=== PATIENT | female | born 1960 | race Caucasian/White ===

== ENCOUNTER 2016-08-25 12:11 | Emergency (ER) | payer MEDICARE, SELFPAY | END 2016-08-25 20:36 | disposition home or self-care (01) | LOC: ER1 12:11 | DX: J44.0 Chronic obstructive pulmonary disease with (acute) lower respiratory infection (principal); J20.9 Acute bronchitis, unspecified; J45.909 Unspecified asthma, uncomplicated; E11.9 Type 2 diabetes mellitus without complications; I25.10 Atherosclerotic heart disease of native coronary artery without angina pectoris; Z88.0 Allergy status to penicillin; Z88.2 Allergy status to sulfonamides; Z88.8 Allergy status to other drugs, medicaments and biological substances; Z79.01 Long term (current) use of anticoagulants; Z79.84 Long term (current) use of oral hypoglycemic drugs; Z79.899 Other long term (current) drug therapy | CPT/HCPCS: 94640; 94664; 96372; 99283; J0696; J1100; J2930 ==

== ENCOUNTER → 2016-08-29 | Outpatient (CLI) | payer MEDICARE, SELFPAY | LOC: RAD 11:26 | DX: J45.909 Unspecified asthma, uncomplicated (principal); R05 Cough; R91.8 Other nonspecific abnormal finding of lung field | CPT/HCPCS: 71020 ==

== ENCOUNTER → 2016-09-12 | Outpatient (CLI) | payer MEDICARE | LOC: HEART 5 14:26 | DX: J44.9 Chronic obstructive pulmonary disease, unspecified (principal) | CPT/HCPCS: 94010 ==

== ENCOUNTER → 2016-09-12 | Outpatient (CLI) | payer MEDICARE | LOC: LAB 16:16 | DX: J45.40 Moderate persistent asthma, uncomplicated (principal); E66.9 Obesity, unspecified | CPT/HCPCS: 36415; 82785 ==

== ENCOUNTER → 2016-10-07 | Outpatient (CLI) | payer MEDICARE, SELFPAY ==
[2016-10-07 15:02] LABS: HEMOGLOBIN 13.1 gm/dl (12.3-15.3); RED BLOOD COUNT 4.2 M/UL (4.00-5.10); WHITE BLOOD COUNT 10.4 K/UL (4.5-11.0)
[2016-10-07 15:24] LABS: BUN/CREATININE RATIO 21 (0-10)
== END ==
LOC: LAB 14:02
PROVIDERS: Internal Medicine
DX: E11.9 Type 2 diabetes mellitus without complications (principal); M25.511 Pain in right shoulder; M25.512 Pain in left shoulder
CPT/HCPCS: 36415; 73030; 80048; 80061; 80076; 83036; 84443; 85025

== ENCOUNTER → 2016-11-07 | Outpatient (CLI) | payer MEDICARE, SELFPAY | LOC: SLEEP 12:34 | DX: G47.33 Obstructive sleep apnea (adult) (pediatric) (principal) | CPT/HCPCS: 95810 ==

== ENCOUNTER → 2016-11-15 | Outpatient (CLI) | payer MEDICARE, SELFPAY | LOC: US 15:30 | DX: M79.605 Pain in left leg (principal); M79.89 Other specified soft tissue disorders | CPT/HCPCS: 93971 ==

== ENCOUNTER → 2020-06-24 | Outpatient (CLI) | payer MEDICARE ==
[~2020-06-24] MED LIST: AIMOVIG AU140 MG/1 M SQ; AIMOVIG AU70 MG/1 M1 SQ; AZITHROMYCIN250 MG PO; BREO ELLIPTA 21 EACH INH; BUTALB-ACETAMI1 EAC1 PO; CALCIPOTRIENE120 G1 TP; CARBIDOPA-LEVO1 EA14 PO; CARISOPRODOL350 MG PO; ELAVIL 50 MG TA50 MG PO; ELIQUIS5 MG PO; FLUOXETINE HCL60 MG PO; IPRATROPIU0.2 MG/1 M INH; KLONOPIN1 MG PO; LASIX20 MG PO; LEVOCETIRIZINE D5 MG PO; LYRICA25 MG PO; METOPROLOL SUCC50 MG PO; MIRAPEX ER1.5 MG PO; MOBIC7.5 MG PO; NITROSTAT 0.40.4 MG SL; NORCO 7.5-3251 EACH PO; NORVASC 5 MG TAB5 MG PO; PHENERGAN 25 MG25 M1 PO; PRAMIPEXOLE DI1.5 MG PO; PREDNISONE10 MG PO; RABEPRAZOLE SOD20 MG PO; ROBITUSSIN AC480 ML PO; SINGULAIR10 MG PO; SPIRIVA RESPIMAT4 GM INH; SYNTHROID75 MCG PO; VENTOLIN HFA 66.7 GM INH; VITAMIN D250000 UNIT PO; VOLTAREN100 GM TP; XYLOCAINE 5% OI35 GM TOP
== END ==
LOC: SLEEP 10:22
DX: G47.33 Obstructive sleep apnea (adult) (pediatric) (principal); J45.40 Moderate persistent asthma, uncomplicated; E66.2 Morbid (severe) obesity with alveolar hypoventilation
CPT/HCPCS: 95810

== ENCOUNTER → 2020-09-13 | Outpatient (CLI) | payer MEDICARE, SELFPAY | LOC: EMI 08:53 | DX: M48.061 Spinal stenosis, lumbar region without neurogenic claudication (principal); M47.817 Spondylosis without myelopathy or radiculopathy, lumbosacral region | CPT/HCPCS: 72148 ==

== ENCOUNTER → 2021-04-27 | Day surgery (SDC) | payer MEDICARE ==
[~2021-04-27] MED LIST changes: +BENZONATATE200 MG PO; +ELIQUIS2.5 MG PO; +FAMOTIDINE20 MG PO; +FASENRA PE30 MG/1 ML SQ; +KLOR-CON 1010 MEQ PO; +MECLIZINE HCL25 MG PO; +MUCINEX600 MG PO; +NYSTATIN1000000 UN MC; +PROCTOCREAM-HC30 G1 TP; +ROBITUSSIN COU118 ML PO; +TRELEGY ELLIPT1 EAC1 INH; +VITAMIN B-121000 MC3 IM; +VITAMIN D21250 MCG PO; +VOLTAREN EC 7575 MG PO
== END | disposition home or self-care (01) ==
LOC: OR 06:12
DX: Z12.11 Encounter for screening for malignant neoplasm of colon (principal); K31.9 Disease of stomach and duodenum, unspecified; K29.50 Unspecified chronic gastritis without bleeding; K29.80 Duodenitis without bleeding; K44.9 Diaphragmatic hernia without obstruction or gangrene; K27.9 Peptic ulcer, site unspecified, unspecified as acute or chronic, without hemorrhage or perforation; K21.9 Gastro-esophageal reflux disease without esophagitis; J96.11 Chronic respiratory failure with hypoxia; E11.21 Type 2 diabetes mellitus with diabetic nephropathy; I10 Essential (primary) hypertension; J44.9 Chronic obstructive pulmonary disease, unspecified; I48.0 Paroxysmal atrial fibrillation; E03.9 Hypothyroidism, unspecified; F41.9 Anxiety disorder, unspecified; F32.A Depression, unspecified; D68.9 Coagulation defect, unspecified; G43.709 Chronic migraine without aura, not intractable, without status migrainosus; M51.36 Other intervertebral disc degeneration, lumbar region; J30.9 Allergic rhinitis, unspecified; M10.9 Gout, unspecified; E78.5 Hyperlipidemia, unspecified; M54.16 Radiculopathy, lumbar region; G47.33 Obstructive sleep apnea (adult) (pediatric); M19.90 Unspecified osteoarthritis, unspecified site; E66.9 Obesity, unspecified; Z87.440 Personal history of urinary (tract) infections; Z87.898 Personal history of other specified conditions; E53.8 Deficiency of other specified B group vitamins; E55.9 Vitamin D deficiency, unspecified; Z86.010 Personal history of colon polyps; Z79.899 Other long term (current) drug therapy; Z79.51 Long term (current) use of inhaled steroids; Z79.01 Long term (current) use of anticoagulants; Z88.1 Allergy status to other antibiotic agents; Z88.5 Allergy status to narcotic agent
CPT/HCPCS: 43239; G0121; J2704; J7030

== ENCOUNTER → 2021-09-24 | Outpatient (CLI) | payer MEDICARE ==
[2021-09-24 12:37] LABS: BORDETELLA PARAPERTUSSIS Not Detected (Not Detectd); BORDETELLA PERTUSSIS Not Detected (Not Detectd); CHLAMYDIA PNEUMONIAE Not Detected (Not Detectd); CORONAVIRUS HKU1 Not Detected (Not Detectd); CORONAVIRUS NL63 Not Detected (Not Detectd); CORONAVIRUS OC43 Not Detected (Not Detectd); CORONOAVIRUS 229E Not Detected (Not Detectd); HUMAN METAPNEUMOVIRUS Not Detected (Not Detectd); HUMAN RHINOVIRUS/ENTEROVIRUS Not Detected (Not Detectd); INFLUENZA A Not Detected (Not Detectd); INFLUENZA B Not Detected (Not Detectd); MYCOPLASMA PNEUMONIAE Not Detected (Not Detectd); PARAINFLUENZA VIRUS 1 Not Detected (Not Detectd); PARAINFLUENZA VIRUS 2 Not Detected (Not Detectd); PARAINFLUENZA VIRUS 3 Not Detected (Not Detectd); PARAINFLUENZA VIRUS 4 Not Detected (Not Detectd); RESPIRATORY SYNCYTIAL VIRUS Not Detected (Not Detectd)
[2021-09-24 14:29] LABS: SARS-CoV-2 NOT DETECTED (Not Detectd)
== END ==
LOC: LAB 11:55
PROVIDERS: Nurse Practitioner Family
DX: R05.9 Cough, unspecified (principal); B34.9 Viral infection, unspecified; Z20.822 Contact with and (suspected) exposure to COVID-19
CPT/HCPCS: 87633

== ENCOUNTER → 2021-10-08 | Outpatient (CLI) | payer MEDICARE | LOC: EXRD 15:06 | DX: J45.40 Moderate persistent asthma, uncomplicated (principal); J44.9 Chronic obstructive pulmonary disease, unspecified; R06.02 Shortness of breath | CPT/HCPCS: 71046 ==

== ENCOUNTER 2021-12-07 12:42 | Emergency (ER) | payer MEDICARE ==
[2021-12-07 13:51] LABS: HEMOGLOBIN 12.4 gm/dl (12.3-15.3); RED BLOOD COUNT 4.2 M/UL (4.00-5.10); WHITE BLOOD COUNT 7.4 K/UL (4.5-11.0)
[2021-12-07 14:16] LABS: BUN/CREATININE RATIO 20 (0-10)
== END 2021-12-07 17:10 | disposition home or self-care (01) ==
LOC: ER1 12:42
PROVIDERS: Physician Assistant
DX: U07.1 COVID-19 (principal); I25.2 Old myocardial infarction; J44.9 Chronic obstructive pulmonary disease, unspecified; I10 Essential (primary) hypertension; Z79.01 Long term (current) use of anticoagulants; Z90.49 Acquired absence of other specified parts of digestive tract; Z88.8 Allergy status to other drugs, medicaments and biological substances
CPT/HCPCS: 0240U; 71045; 80053; 81001; 85025; 96374; 99283; J1885